=== PATIENT | female | born 1940 | race Caucasian/White ===

== ENCOUNTER 2025-01-16 00:56 | Inpatient (IN) | payer MEDICARE ==
[~2025-01-16] VITALS: Ht 152.4 cm; Wt 37.2 kg
[2025-01-16 01:32] LABS: ABG BASE EXCESS 4.6 mmol/L (-2.0-3.0); ABG OXYGEN SATURATION 99.7 % (94.0-98.0); ABG PCO2 90.8 mmHg (32.0-45.0); ABG PH 7.216 (7.350-7.450); ABG PO2 380.7 mmHg (83.0-108.0); ABG TOTAL HEMOGLOBIN 14.9 G/dL (12.0-16.0); SET RATE, BG 18.0; SITE, ABG RIGHT RADIAL
[2025-01-16] MEDS: ALBUTEROL FS 2.5 MG/0.5 ML VIAL.NEB NEB ONE (01:33)
[2025-01-16] MEDS ORDERED: SODIUM BICARBONATE SYR 50 MEQ/50 ML DISP.SYRIN ONE ×2 (01:35→01:36)
[2025-01-16 01:38] LABS: PLATELET COUNT (AUTO) 183 K/uL (150-450); RED BLOOD CELL COUNT(AUTO) 4.90 MIL/uL (4.0-5.2); RED CELL DISTRIBUTION WIDTH 14.4 % (11.5-15.0); WHITE BLOOD COUNT (AUTO) 15.9 K/uL (4.3-11.0)
[2025-01-16] MEDS: SODIUM BICARBONATE SYR 50 MEQ/50 ML DISP.SYRIN IV ONE (01:39)
[2025-01-16] MEDS ORDERED: ALBUTEROL FS 2.5 MG/0.5 ML VIAL.NEB ONE (01:41)
[2025-01-16] MEDS ORDERED: ONDANSETRON HCL/PF 4 MG/2 ML VIAL ONE (01:44)
[2025-01-16] MEDS ORDERED: CEFEPIME 1 GM VIAL ONE (01:44)
[2025-01-16 01:46] LABS: CALCIUM, SERUM 9.3 mg/dL (8.5-10.1); CREATININE 0.7 mg/dL (0.6-1.3); SODIUM SERUM 141 mmol/L (136-145); UREA NITROGEN, BLOOD 22 mg/dL (7-18)
[2025-01-16] MEDS: CEFEPIME 1 GM in IV D5W 50 ML IV ONE (01:46)
[2025-01-16] MEDS: ONDANSETRON HCL/PF 4 MG/2 ML VIAL IV ONE (01:46)
[2025-01-16 01:51] LABS: INR 0.97 (0.91-1.10)
[2025-01-16 01:59] LABS: ASPARTATE AMINOTRANSFERASE 29 U/L (15-37); NT-PRO BNP 882 pg/mL (0-125); TOTAL PROTEIN, SERUM 7.3 g/dL (6.4-8.2)
[2025-01-16] MEDS ORDERED: ASPIRIN 300 MG/SUPP.RECT RC ONE (02:02)
[2025-01-16] MEDS: ASPIRIN 300 MG/SUPP.RECT RC ONE (02:04)
[2025-01-16 02:27] LABS: LACTIC ACID 3.3 mmol/L (0.4-2.0)
[2025-01-16 02:44] LABS: APPEARANCE,URINE CLEAR (CLEAR); BLOOD, URINE TRACE-INTA Ery/uL (NEGATIVE); LEUKOCYTE ESTERASE ,URINE NEGATIVE (NEGATIVE); NITRITE, URINE NEGATIVE (NEGATIVE); UGLUCOSE NEGATIVE (NEGATIVE)
[2025-01-16 03:00] LABS: ADD URINE CULTURE NO; SQUAMOUS EPITHELIAL CELL,UR 0-2 /HPF (None Seen)
[2025-01-16] MEDS ORDERED: ACETAMINOPHEN 325 MG TABLET PO PRN (03:00)
[2025-01-16] MEDS ORDERED: ONDANSETRON HCL/PF 4 MG/2 ML VIAL IVP PRN (03:00)
[2025-01-16] MEDS ORDERED: MAG HYDROX/AL HYDROX/SIMETH 30 ML UDC PO PRN (03:00)
[2025-01-16] MEDS ORDERED: Z GUARD REMEDY 4 OZ OINT TP PRN (03:00)
[2025-01-16] MEDS ORDERED: MAGNESIUM HYDROXIDE 30 ML UDC PO PRN (03:00)
[2025-01-16 04:40] LABS: ABG BASE EXCESS 11.6 mmol/L (-2.0-3.0); ABG OXYGEN SATURATION 97.4 % (94.0-98.0); ABG PCO2 69.3 mmHg (32.0-45.0); ABG PH 7.379 (7.350-7.450); ABG PO2 94.4 mmHg (83.0-108.0); ABG TOTAL HEMOGLOBIN 14.5 G/dL (12.0-16.0); SET RATE, BG 18.0; SITE, ABG RIGHT RADIAL
[2025-01-16] MEDS: LEVALBUTEROL HCL NEB 1.25 MG/0.5 ML VIAL.NEB NEB SCH (05:30)
[2025-01-16] MEDS ORDERED: IPRATROPIUM NEB FS 0.5 MG/2.5 ML AMPUL.NEB ONE ×3 (06:10→11:31)
[2025-01-16] MEDS: IPRATROPIUM NEB FS 0.5 MG/2.5 ML AMPUL.NEB NEB SCH (06:20)
[2025-01-16] MEDS ORDERED: ASPIRIN 81 MG TAB.CHEW ONE (09:44)
[2025-01-16] MEDS ORDERED: PANTOPRAZOLE 40 MG VIAL ONE (09:44)
[2025-01-16] MEDS: ASPIRIN 81 MG TAB.CHEW PO SCH (09:54)
[2025-01-16] MEDS: PANTOPRAZOLE 40 MG VIAL IV SCH (09:54)
[2025-01-16] MEDS ORDERED: ENOXAPARIN SODIUM 40 MG/0.4 ML DISP.SYRIN SQ SCH (10:00)
[2025-01-16] MEDS ORDERED: SIMVASTATIN (11:25)
[2025-01-16] MEDS ORDERED: ASPIRIN (11:25)
[2025-01-16] MEDS ORDERED: ENALAPRIL (11:25)
[2025-01-16] MEDS ORDERED: METOPROLOL (11:25)
[2025-01-16] MEDS ORDERED: PREDNISONE (11:25)
[2025-01-16] MEDS: CEFEPIME 2 GM in IV D5W 100 ML IV SCH (13:38)
[2025-01-16] MEDS ORDERED: CEFEPIME 1 GM in IV D5W 50 ML IV SCH (14:00)
[2025-01-16 16:00] VITALS: BP 133/95; TEMP 98.1; O2SAT 98
[2025-01-16 16:15] LABS: ABG BASE EXCESS 7.6 mmol/L (-2.0-3.0); ABG OXYGEN SATURATION 96.0 % (94.0-98.0); ABG PCO2 51.4 mmHg (32.0-45.0); ABG PH 7.431 (7.350-7.450); ABG PO2 78.5 mmHg (83.0-108.0); ABG TOTAL HEMOGLOBIN 14.2 G/dL (12.0-16.0); FRACTIONATED INSPIRED OXYGEN 30.0 %; SET RATE, BG 18.0; SITE, ABG LEFT RADIAL
[2025-01-16] MEDS ORDERED: IOHEXOL-300 100 ML VIAL IV ONE (18:07)
[2025-01-16] MEDS ORDERED: IV NS 0.9% 250 ML IV ONE (18:07)
[2025-01-16] MEDS ORDERED: CT SWABBABLE VALVE TRANS SET 1 EA INFUS.SET MC ONE (18:07)
[2025-01-16] MEDS: IV D5/0.45 NACL 1,000 ML IV PRN (18:56)
[2025-01-16 20:00] VITALS: BP 129/94; TEMP 98.4; O2SAT 95
[2025-01-17] VITALS (16 sets, daily range): BP systolic 113–140; BP diastolic 90–117; TEMP 97.3–98.3; O2SAT 96–100
[2025-01-17 07:33] LABS: PLATELET COUNT (AUTO) 134 K/uL (150-450); RED BLOOD CELL COUNT(AUTO) 4.46 MIL/uL (4.0-5.2); RED CELL DISTRIBUTION WIDTH 14.4 % (11.5-15.0); WHITE BLOOD COUNT (AUTO) 7.1 K/uL (4.3-11.0)
[2025-01-17 08:03] LABS: ASPARTATE AMINOTRANSFERASE 52.0 U/L (15-37); CALCIUM, SERUM 8.7 mg/dL (8.5-10.1); CREATININE 0.7 mg/dL (0.6-1.3); PHOSPHORUS 3.2 mg/dL (2.5-4.9); SODIUM SERUM 139.0 mmol/L (136-145); TOTAL PROTEIN, SERUM 6.3 g/dL (6.4-8.2); UREA NITROGEN, BLOOD 34.0 mg/dL (7-18)
[2025-01-17 08:27] LABS: LACTIC ACID 2.6 mmol/L (0.4-2.0); PHOSPHORUS 3.4 mg/dL (2.5-4.9)
[2025-01-17] MEDS: IPRATROPIUM NEB FS 0.5 MG/2.5 ML AMPUL.NEB NEB ONE (13:41)
[2025-01-17] MEDS: ASPIRIN 300 MG/SUPP.RECT RC SCH (15:14)
[2025-01-17] MEDS: HEPARIN SODIUM, PORCINE 5000 UNITS/1 ML VIAL IV ONE (17:05)
[2025-01-17] MEDS: HEPARIN INFUSION/D5W 500 ML IV PRN (17:28)
[2025-01-18] VITALS (13 sets, daily range): BP systolic 112–135; BP diastolic 71–103; TEMP 97.1–98.6; O2SAT 93–100
[2025-01-18 06:30] LABS: PLATELET COUNT (AUTO) 144 K/uL (150-450); RED BLOOD CELL COUNT(AUTO) 4.48 MIL/uL (4.0-5.2); RED CELL DISTRIBUTION WIDTH 14.3 % (11.5-15.0); WHITE BLOOD COUNT (AUTO) 7.6 K/uL (4.3-11.0)
[2025-01-18 07:05] LABS: CALCIUM, SERUM 8.9 mg/dL (8.5-10.1); CREATININE 0.5 mg/dL (0.6-1.3); PHOSPHORUS 3.5 mg/dL (2.5-4.9); SODIUM SERUM 136.0 mmol/L (136-145); UREA NITROGEN, BLOOD 29.0 mg/dL (7-18)
[2025-01-18] MEDS: ALPRAZOLAM 0.25 MG TABLET PO PRN (08:49)
[2025-01-18] MEDS ORDERED: SIMV-49 PO (08:58)
[2025-01-18] MEDS ORDERED: METO50TA16 PO (08:58)
[2025-01-18] MEDS ORDERED: ENAL10TA39 PO (08:58)
[2025-01-18] MEDS ORDERED: ASPI-1169 PO (08:58)
[2025-01-18] MEDS: ASPIRIN 325 MG TABLET PO SCH (09:00)
[2025-01-18] MEDS ORDERED: PRED2.5T PO (09:22)
[2025-01-18] MEDS ORDERED: IOHEXOL-350 100 ML VIAL IV ONE (10:53)
[2025-01-18] MEDS ORDERED: IV NS 0.9% 250 ML IV ONE (10:56)
[2025-01-18] MEDS: ENALAPRIL MALEATE (10 MG) 10 MG TABLET PO SCH (20:06)
[2025-01-18] MEDS: METOPROLOL TARTRATE 50 MG TABLET PO SCH (20:07)
[2025-01-18] MEDS: SIMVASTATIN 20 MG TABLET PO SCH (22:41)
[2025-01-19] VITALS (14 sets, daily range): BP systolic 91–115; BP diastolic 61–84; TEMP 97.3–98.4; O2SAT 95–100
[2025-01-19 08:23] LABS: ASPARTATE AMINOTRANSFERASE 22.0 U/L (15-37); CALCIUM, SERUM 8.2 mg/dL (8.5-10.1); CREATININE 0.4 mg/dL (0.6-1.3); PHOSPHORUS 3.5 mg/dL (2.5-4.9); SODIUM SERUM 140.0 mmol/L (136-145); TOTAL PROTEIN, SERUM 5.0 g/dL (6.4-8.2); UREA NITROGEN, BLOOD 22.0 mg/dL (7-18)
[2025-01-19] MEDS: PANTOPRAZOLE 40 MG TABLET.DR PO SCH (08:23)
[2025-01-19] MEDS: ENOXAPARIN SODIUM 30 MG/0.3 ML DISP.SYRIN SQ SCH (08:24)
[2025-01-19 08:27] LABS: PLATELET COUNT (AUTO) 121 K/uL (150-450); RED BLOOD CELL COUNT(AUTO) 4.23 MIL/uL (4.0-5.2); RED CELL DISTRIBUTION WIDTH 14.2 % (11.5-15.0); WHITE BLOOD COUNT (AUTO) 6.6 K/uL (4.3-11.0)
[2025-01-19] MEDS: ASPIRIN 81 MG TAB.CHEW PO SCH (08:29)
[2025-01-19 11:52] LABS: ABG BASE EXCESS 8.5 mmol/L (-2.0-3.0); ABG OXYGEN SATURATION 96.8 % (94.0-98.0); ABG PCO2 61.7 mmHg (32.0-45.0); ABG PH 7.382 (7.350-7.450); ABG PO2 93.7 mmHg (83.0-108.0); ABG TOTAL HEMOGLOBIN 13.6 G/dL (12.0-16.0); FLOW, BLOOD GAS 2.00 L/min (0.00-30.00); FRACTIONATED INSPIRED OXYGEN 28.0 %; SITE, ABG LEFT RADIAL
[2025-01-20] VITALS (13 sets, daily range): BP systolic 91–114; BP diastolic 66–82; TEMP 97.7–98.4; O2SAT 93–100
[2025-01-20 09:16] LABS: PLATELET COUNT (AUTO) 109 K/uL (150-450); RED BLOOD CELL COUNT(AUTO) 4.26 MIL/uL (4.0-5.2); RED CELL DISTRIBUTION WIDTH 13.9 % (11.5-15.0); WHITE BLOOD COUNT (AUTO) 5.0 K/uL (4.3-11.0)
[2025-01-20 09:47] LABS: LDL 138 mg/dL (0-99)
[2025-01-20 11:11] LABS: ASPARTATE AMINOTRANSFERASE 24 U/L (15-37); PHOSPHORUS 3.4 mg/dL (2.5-4.9); SODIUM SERUM 140 mmol/L (136-145); TOTAL PROTEIN, SERUM 5.1 g/dL (6.4-8.2)
[2025-01-20 11:12] LABS: CALCIUM, SERUM 8.2 mg/dL (8.5-10.1); CREATININE 0.5 mg/dL (0.6-1.3); UREA NITROGEN, BLOOD 24 mg/dL (7-18)
[2025-01-21] VITALS (16 sets, daily range): BP systolic 96–121; BP diastolic 68–92; TEMP 97.9–98.4; O2SAT 94–100
[2025-01-22] VITALS (16 sets, daily range): BP systolic 124–143; BP diastolic 81–90; TEMP 97.5–98.3; O2SAT 97–100
[2025-01-22 08:21] LABS: ASPARTATE AMINOTRANSFERASE 24.0 U/L (15-37); CALCIUM, SERUM 8.4 mg/dL (8.5-10.1); CREATININE 0.5 mg/dL (0.6-1.3); PHOSPHORUS 2.7 mg/dL (2.5-4.9); SODIUM SERUM 139.0 mmol/L (136-145); TOTAL PROTEIN, SERUM 5.6 g/dL (6.4-8.2); UREA NITROGEN, BLOOD 18.0 mg/dL (7-18)
[2025-01-22 08:22] LABS: PLATELET COUNT (AUTO) 133 K/uL (150-450); RED BLOOD CELL COUNT(AUTO) 4.82 MIL/uL (4.0-5.2); RED CELL DISTRIBUTION WIDTH 14.6 % (11.5-15.0); WHITE BLOOD COUNT (AUTO) 5.2 K/uL (4.3-11.0)
[2025-01-23] VITALS (16 sets, daily range): BP systolic 108–131; BP diastolic 72–85; TEMP 97.1–98.4; O2SAT 93–100
[2025-01-23] MEDS: DILTIAZEM HCL CD 120 MG PO SCH (08:49)
[2025-01-23] MEDS ORDERED: DILTIAZEM HCL CD 240 MG PO SCH (09:00)
[2025-01-23 12:52] LABS: ABG BASE EXCESS 5.5 mmol/L (-2.0-3.0); ABG OXYGEN SATURATION 92.5 % (94.0-98.0); ABG PCO2 43.5 mmHg (32.0-45.0); ABG PH 7.457 (7.350-7.450); ABG PO2 61.6 mmHg (83.0-108.0); ABG TOTAL HEMOGLOBIN 14.8 G/dL (12.0-16.0); FLOW, BLOOD GAS 1.00 L/min (0.00-30.00); FRACTIONATED INSPIRED OXYGEN 24.0 %; SITE, ABG RIGHT RADIAL
[2025-01-24] VITALS (14 sets, daily range): BP systolic 99–152; BP diastolic 67–90; TEMP 96.3–98.2; O2SAT 92–100
[2025-01-25] VITALS (14 sets, daily range): BP systolic 94–127; BP diastolic 60–76; TEMP 97.5–97.9; O2SAT 96–100
[2025-01-25] MEDS ORDERED: LEVA1.2524 NEB (15:26)
[2025-01-25] MEDS ORDERED: IPRA0.2S9 NEB (15:26)
[2025-01-25] MEDS ORDERED: PRED5TAB48 PO (15:26)
[2025-01-25] MEDS ORDERED: PRED20TA PO (15:26)
[2025-01-26] VITALS (14 sets, daily range): BP systolic 97–127; BP diastolic 64–84; TEMP 97.7–98.4; O2SAT 97–100
[2025-01-27] VITALS (8 sets, daily range): BP systolic 110–130; BP diastolic 65–79; TEMP 97.3–97.7; O2SAT 96–100
== END 2025-01-27 11:40 | disposition home health service (06) | DRG 190 ==
LOC: ER 00:58 → TELE1 02:52 → TELE 04:24 → TELE IN 09:42 → TELE1 12:41 → TELE-TD 12:43 → TELE1 01-17 11:01 → MEDSG1 01-26 13:23
PROC: 5A09557 Assistance with Respiratory Ventilation, Greater than 96 Consecutive Hours, Continuous Positive Airway Pressure (ICD-10-PCS; principal; 2025-01-16)
DX: J44.1 Chronic obstructive pulmonary disease with (acute) exacerbation (principal); I21.4 Non-ST elevation (NSTEMI) myocardial infarction; J96.01 Acute respiratory failure with hypoxia; J96.02 Acute respiratory failure with hypercapnia; K92.2 Gastrointestinal hemorrhage, unspecified; E44.1 Mild protein-calorie malnutrition; I10 Essential (primary) hypertension; E87.20 Acidosis, unspecified; Z66 Do not resuscitate; E88.09 Other disorders of plasma-protein metabolism, not elsewhere classified; Z20.822 Contact with and (suspected) exposure to COVID-19; Z79.82 Long term (current) use of aspirin; Z79.899 Other long term (current) drug therapy; E78.5 Hyperlipidemia, unspecified; D72.829 Elevated white blood cell count, unspecified; I48.91 Unspecified atrial fibrillation; R79.89 Other specified abnormal findings of blood chemistry; Z86.718 Personal history of other venous thrombosis and embolism; Z79.51 Long term (current) use of inhaled steroids
CPT/HCPCS: 36415; 36600; 71045-TC; 71260-TC; 80048-TC; 80053-TC; 80061-TC; 80076-TC; 81001; 82803-TC; 83605-TC; 83735-TC; 83880; 84100-TC; 84443-TC; 84484-TC; 85025-TC; 85378-TC; 85730-TC; 87040-TC; 92526; 92611; 93307-TC; 93970-TC; 94660; 94760-TC; 94762-TC; 94799-TC; 97110-TC; 97116-TC; 97530-TC; A4223; G0378; J0692; J1644; J1650; J2405; J2470; J2919; J3490; J7050; J7060; Q9967